=== PATIENT | male | born 1950 | race African-American/Black ===

== ENCOUNTER 2016-05-29 20:37 | Emergency (ER) | payer OTHER ==
[~2016-05-29] VITALS: Ht 180.3 cm; Wt 97.5 kg
[2016-05-29 20:46] VITALS: BP 142/88
--- NOTE | 2016-05-29 21:21 | NUR ---
CXR IS IN PROGRESS AT THE BEDSIDE.
--- NOTE | 2016-05-29 21:22 | NUR ---
RT IS AT THE BEDSIDE FOR BREATHING TX.
[2016-05-29] MEDS ORDERED: ALBUTEROL FS 2.5 MG/3 ML VIAL.NEB ONE (21:27)
[2016-05-29] MEDS: ALBUTEROL FS 2.5 MG/3 ML VIAL.NEB NEB ONE (21:29)
[2016-05-29] MEDS ORDERED: IBUPROFEN 600 MG TABLET PO ONE (22:15)
[2016-05-29] MEDS: IBUPROFEN 600 MG TABLET PO ONE (22:22)
== END 2016-05-29 23:00 | disposition home or self-care (01) ==
LOC: ER 20:40
DX: J02.9 Acute pharyngitis, unspecified (principal); J40 Bronchitis, not specified as acute or chronic; Z86.73 Personal history of transient ischemic attack (TIA), and cerebral infarction without residual deficits
CPT/HCPCS: 71010; 94640; 99283; A4606; Z7610